=== PATIENT | female | born 1965 | race Caucasian/White ===

== ENCOUNTER 2025-09-11 06:13 | Emergency (ER) | payer SELFPAY ==
[2025-09-11] MEDS ORDERED: Ondansetron PF 4 MG/2 ML Vial ONE (06:41)
[2025-09-11 07:09] LABS: Anion Gap 17 mmol/L (10-20); BUN (Urea Nitrogen) 20 mg/dL (9.8-20.1); Calc. Creatinine Clearance 0 mL/min (70-130); Carbon Dioxide 18 mmol/L (22-29); Chloride 110 mmol/L (98-107); Potassium 3.9 mmol/L (3.5-5.1); Sodium 141 mmol/L (136-145)
[2025-09-11 07:10] LABS: ALT (SGPT) 17 U/L (Less than 34); AST (SGOT) 17 U/L (11-34); Albumin 4.0 g/dL (3.1-4.5); Alkaline Phosphatase 82 U/L (40-110); Bilirubin, Total 0.2 mg/dL (0.3-1.2); Calcium 8.6 mg/dL (7.8-10.44); Globulin 2.8 g/dL (2.4-3.5); Glucose 133 mg/dL (70-105)
[2025-09-11 07:11] LABS: Troponin I 0.013 ng/mL (< 0.028)
[2025-09-11 07:18] LABS: Hematocrit 33.7 % (36.0-47.0); Hemoglobin 10.4 g/dL (12.0-16.0); Mean Corpuscular Hemoglobin 22.7 pg (27.0-31.0); Mean Corpuscular Volume 73.4 fl (78.0-98.0); Platelet Count 252 10x3/uL (130-400); Red Blood Cell (RBC) Count 4.59 mill/uL (4.20-5.40)
[2025-09-11 07:34] LABS: MDiff Complete? YES; Microcytosis SLIGHT = 6-15 cells (100X) (0-5/hpf); Platelet Adequacy Comment Appears Adequate
[2025-09-11 07:37] LABS: White Blood Cell (WBC) Count 11.2 10x3/uL (4.8-10.8)
[2025-09-11 08:32] LABS: Glucose, Urine (Dipstick) Negative (Negative); Leukocyte Negative (Negative); Protein, Urine (Dipstick) 30 mg/dL (Neg-Trace); Specific Gravity, Urine 1.015 (1.005-1.030)
[2025-09-11] MEDS ORDERED: Iopamidol 370 76% 100 ML VIAL ONE (08:37)
[2025-09-11 08:54] LABS: CAUTI Indications for Culture Pelvic or flank pain; WBC/HPF 0-3 HPF (0-3)
[2025-09-11 08:55] LABS: Bacteria/HPF Rare-Few HPF (None Seen)
[2025-09-11 08:56] LABS: Urine Culture Reflex No No
[2025-09-11] MEDS ORDERED: Ketorolac Tromethamine 30 MG (1 mL) VIAL ONE (09:01)
[2025-09-11] MEDS ORDERED: Lidocaine 2% PF 100 mg/5 ml Syringe ONE (09:07)
== END 2025-09-11 13:45 | disposition short-term general hospital (02) ==
LOC: BURERS 06:13
DX: N13.2 Hydronephrosis with renal and ureteral calculous obstruction (principal); I10 Essential (primary) hypertension; E11.9 Type 2 diabetes mellitus without complications; Z79.899 Other long term (current) drug therapy
CPT/HCPCS: 36415; 74177; 80053; 81001; 83605; 84484; 85025; 93005; 96374; 96375; 96376; J1885; J2003; J2270; J2405; Q9967

== ENCOUNTER 2025-09-26 21:19 | Emergency (ER) | payer SELFPAY ==
[2025-09-26] MEDS ORDERED: Ketorolac Tromethamine 30 MG (1 mL) VIAL ONE (21:39)
[2025-09-26 21:41] LABS: Glucose, Urine (Dipstick) Negative (Negative); Leukocyte Small (Negative); Protein, Urine (Dipstick) > or equal to 300 mg/dL (Neg-Trace); Specific Gravity, Urine Greater/Equal 1.030 (1.005-1.030)
[2025-09-26 21:44] LABS: CAUTI Indications for Culture Dysuria,urgency,freq; RBC/HPF Greater than 50 HPF (0-3)
[2025-09-26 21:45] LABS: Bacteria/HPF 1+ HPF (None Seen); Urine Culture Reflex No No
[2025-09-26 22:07] LABS: #Basophils 0.1 thou/uL (0.0-0.2); #Eosinophils 0.3 thou/uL (0.0-0.7); #Lymphocytes 4.4 thou/uL (1.20-3.40); #Monocytes 0.7 thou/uL (0.11-0.59); #Neutrophils 6.9 thou/uL (1.40-6.50); %Basophils 1.0 % (0.0-1.0); %Eosinophils 2.2 % (0.0-10.0); %Lymphocytes 35.3 % (21.0-51.0); %Monocytes 5.3 % (0.0-10.0); %Neutrophils 56.2 % (42.0-75.0); Hematocrit 30.4 % (36.0-47.0); Hemoglobin 9.9 g/dL (12.0-16.0); MDiff Complete? YES; Mean Corpuscular Hemoglobin 23.2 pg (27.0-31.0); Mean Corpuscular Volume 71.4 fl (78.0-98.0); Microcytosis SLIGHT = 6-15 cells (100X) (0-5/hpf); Platelet Adequacy Comment Appears Increased; Platelet Count 453 10x3/uL (130-400); Red Blood Cell (RBC) Count 4.25 mill/uL (4.20-5.40); White Blood Cell (WBC) Count 12.3 10x3/uL (4.8-10.8)
[2025-09-26 22:08] LABS: ALT (SGPT) 16 U/L (Less than 34); AST (SGOT) 19 U/L (11-34); Albumin 3.8 g/dL (3.1-4.5); Alkaline Phosphatase 89 U/L (40-110); Anion Gap 16 mmol/L (10-20); BUN (Urea Nitrogen) 14 mg/dL (9.8-20.1); Bilirubin, Total 0.2 mg/dL (0.3-1.2); Calc. Creatinine Clearance 0 mL/min (70-130); Calcium 9.6 mg/dL (7.8-10.44); Carbon Dioxide 21 mmol/L (22-29); Chloride 108 mmol/L (98-107); Globulin 3.1 g/dL (2.4-3.5); Glucose 117 mg/dL (70-105); Potassium 3.7 mmol/L (3.5-5.1); Sodium 141 mmol/L (136-145)
== END 2025-09-26 22:43 | disposition home or self-care (01) ==
LOC: BURERS 21:19
DX: N20.0 Calculus of kidney (principal); I10 Essential (primary) hypertension; E11.9 Type 2 diabetes mellitus without complications
CPT/HCPCS: 74176; 80053; 81001; 85025; 94760; 96374; J1885